=== PATIENT | female | born 1930 | race Caucasian/White ===

== ENCOUNTER 2017-11-07 11:52 | Inpatient (IN) ==
[2017-11-07] MEDS ORDERED: ONDANSETRON 4 MG/2 ML VIAL IV STA (15:23)
[2017-11-07] MEDS ORDERED: SODIUM CHLORIDE 0.9% 1,000 ML IV STA (15:23)
[2017-11-07 16:02] LABS: Basophils % 0.1 % (0.0-0.8); Hematocrit 39.3 VOL% (35.7-47.0); Hemoglobin 13.1 GM/DL (12.0-16.0); Immature Granulocytes % 0.3 %; Immature Granulocytes Absolute 0.04 #; Lymphocytes # 1.2 10*3/uL (1.4-4.0); Lymphocytes % 8.5 % (21.3-54.2); Mean Corpuscular HGB Conc 33.3 GM/DL (32-36); Mean Corpuscular Hemoglobin 29 PG (27-34); Mean Corpuscular Volume 87.7 FL (87-102); Mean Platelet Volume 9.9 FL (9.6-12.0); Monocytes % 6.7 % (1.7-12.7); Neutrophils # 11.9 10*3/uL (1.4-7.4); Neutrophils % 84.4 % (38.7-73.9); Platelet Count 316 T/CUMM (130-400); Red Blood Count 4.48 MC/CUMM (3.8-5.5); Red Cell Distribution Width 13.6 % (9.3-17.3); White Blood Count 14.1 T/CUMM (4-12)
[2017-11-07] MEDS ORDERED: ONDANSETRON 4 MG/2 ML VIAL ONE (16:03)
[2017-11-07 16:11] LABS: Apearance,Urine CLEAR (Clear); Blood, Urine Negative (Negative); Glucose,Urine (UA) Negative (Negative); Ketones,Urine 20 mg/dL (Negative); Mucus,Urine Occasional /LPF (Occasional); Nitrite,Urine Negative (Negative); PT Patient Result 10.7 SECS; Protein,Urine Negative; RBC,Urine 2 /HPF (0-4); Urine Specific Gravity 1.026 (1.001-1.035); Urine Urobilinogen < 2.0 EU/DL (0.2-1.0); WBC,Urine 1 /HPF (0-6)
[2017-11-07 16:12] LABS: Bilirubin,Urine Moderate mg/dL (Negative); Urine Color Yellow (Yellow)
[2017-11-07 16:22] LABS: Bilirubin,Total 0.8 MG/DL (0.2-1.0); Calcium 9.5 MG/DL (8.5-10.1); Lactic Acid 1.7 MMOL/L (0.4-2.0); Osmolality,Calculated 282.8 MOS/KG (273-304); Potassium 4.4 MMOL/L (3.5-5.1); Total Protein 8.2 G/DL (6.4-8.3)
[2017-11-07 16:34] LABS: Troponin I Only < 0.015 NG/ML (0.00-0.045)
[2017-11-07] MEDS ORDERED: ONDANSETRON 4 MG/2 ML VIAL IV PRN ×2 (19:32)
[2017-11-07] MEDS ORDERED: ACETAMINOPHEN 325 MG TABLET PO PRN (19:32)
[2017-11-07] MEDS ORDERED: PROMETHAZINE 25 MG/1 ML VIAL IM PRN (19:32)
[2017-11-07] MEDS ORDERED: MORPHINE 4 MG/1 ML VIAL IV PRN (19:32)
[2017-11-07] MEDS ORDERED: cefOXitin 2,000 MG in SYRINGE 1 EACH IV ONE (20:00)
[2017-11-07] MEDS ORDERED: cefTRIAXone 1,000 MG in SYRINGE 1 EACH IV SCH (20:00)
[2017-11-07] MEDS: SODIUM CHLORIDE 0.9% 1,000 ML IV SCH (20:30)
[2017-11-07] MEDS: PANTOPRAZOLE 40 MG TABLET PO SCH (20:31)
[2017-11-07] MEDS: SIMVASTATIN 20 MG TABLET PO SCH (20:31)
[2017-11-08] MEDS ORDERED: cefOXitin 2,000 MG in SYRINGE 1 EACH IV ONE (06:00)
[2017-11-08 07:12] LABS: Basophils % 0.3 % (0.0-0.8); Eosinophils # 0.1 10*3/uL (0.0-0.87); Eosinophils % 0.5 % (0.00-10.9); Hematocrit 34.9 VOL% (35.7-47.0); Hemoglobin 11.5 GM/DL (12.0-16.0); Immature Granulocytes % 0.2 %; Immature Granulocytes Absolute 0.02 #; Lymphocytes # 1.4 10*3/uL (1.4-4.0); Lymphocytes % 13.7 % (21.3-54.2); Mean Corpuscular Hemoglobin 29 PG (27-34); Mean Corpuscular Volume 88.4 FL (87-102); Monocytes # 1.4 10*3/uL (0.11-0.8); Monocytes % 13.5 % (1.7-12.7); Neutrophils # 7.3 10*3/uL (1.4-7.4); Neutrophils % 71.8 % (38.7-73.9); Platelet Count 278 T/CUMM (130-400); Red Blood Count 3.95 MC/CUMM (3.8-5.5); Red Cell Distribution Width 13.9 % (9.3-17.3); White Blood Count 10.2 T/CUMM (4-12)
[2017-11-08 07:32] LABS: Albumin 3.2 G/DL (3.4-5.0); Bilirubin,Total 0.4 MG/DL (0.2-1.0); Calcium 8.4 MG/DL (8.5-10.1); Osmolality,Calculated 285.4 MOS/KG (273-304); Total Protein 6.5 G/DL (6.4-8.3)
[2017-11-08] MEDS ORDERED: DIAZEPAM 5 MG TABLET PO ONE (08:05)
[2017-11-08] MEDS ORDERED: FAMOTIDINE 20 MG TABLET PO ONE (08:05)
[2017-11-08] MEDS: amLODIPine 5 MG TABLET PO SCH (08:54)
[2017-11-08] MEDS ORDERED: ENOXAPARIN 40 MG/0.4 ML SYRINGE SUBCUT SCH (09:00)
[2017-11-08] MEDS: MONTELUKAST 10 MG TABLET PO SCH (09:00)
[2017-11-08] MEDS ORDERED: LIDOCAINE 1%/EPI INJ 20 ML VIAL ONE (09:37)
[2017-11-08] MEDS ORDERED: ONDANSETRON 4 MG/2 ML VIAL IV PRN ×2 (13:08→14:39)
[2017-11-08] MEDS ORDERED: ONDANSETRON 4 MG/2 ML VIAL ONE ×2 (13:13→15:41)
[2017-11-08] MEDS ORDERED: HYDROmorphone 2 MG/1 ML VIAL ONE (13:13)
[2017-11-08] MEDS: HYDROmorphone 2 MG/1 ML VIAL IV PRN ×3 (13:18→13:34)
[2017-11-08] MEDS ORDERED: LACTATED RINGERS 1,000 ML IV SCH (13:30)
[2017-11-08] MEDS ORDERED: MORPHINE 4 MG/1 ML VIAL IV PRN (14:39)
[2017-11-08] MEDS ORDERED: PROMETHAZINE 25 MG/1 ML VIAL IM PRN (14:39)
[2017-11-08] MEDS ORDERED: PROPOFOL 200 MG/20 ML VIAL IV ONE (15:39)
[2017-11-08] MEDS ORDERED: DESFLURANE 1 UNIT/15 MINUTE INH ONE (15:39)
[2017-11-08] MEDS ORDERED: KETOROLAC 30 MG/1 ML VIAL ONE (15:41)
[2017-11-08] MEDS ORDERED: ACETAMINOPHEN 1,000 MG/100 ML VIAL IV ONE (15:41)
[2017-11-08] MEDS ORDERED: ROCURONIUM 100 MG/10 ML VIAL IV ONE (15:41)
[2017-11-08] MEDS ORDERED: LACTATED RINGERS 1,000 ML IV ONE (15:41)
[2017-11-08] MEDS ORDERED: PHENYLEPHRINE 1 MG/10 ML SYRINGE IV ONE (15:41)
[2017-11-08] MEDS ORDERED: fentaNYL 100 MCG/2 ML VIAL ONE ×2 (15:42→15:51)
[2017-11-08] MEDS: KETOROLAC 15 MG/1 ML VIAL IV SCH ×2 (15:45→20:42)
[2017-11-08] MEDS: LACTATED RINGERS 1,000 ML IV SCH ×2 (17:51→22:25)
[2017-11-08] MEDS: SIMVASTATIN 20 MG TABLET PO SCH (21:10)
[2017-11-09] MEDS: LACTATED RINGERS 1,000 ML IV SCH ×2 (02:20→06:59)
[2017-11-09 04:46] LABS: Basophils % 0.2 % (0.0-0.8); Hematocrit 31.2 VOL% (35.7-47.0); Hemoglobin 10.5 GM/DL (12.0-16.0); Immature Granulocytes % 0.5 %; Immature Granulocytes Absolute 0.05 #; Lymphocytes # 0.8 10*3/uL (1.4-4.0); Lymphocytes % 8.9 % (21.3-54.2); Mean Corpuscular HGB Conc 33.7 GM/DL (32-36); Mean Corpuscular Hemoglobin 29 PG (27-34); Mean Corpuscular Volume 87.2 FL (87-102); Mean Platelet Volume 10.8 FL (9.6-12.0); Monocytes # 0.6 10*3/uL (0.11-0.8); Monocytes % 6.3 % (1.7-12.7); Neutrophils # 7.9 10*3/uL (1.4-7.4); Neutrophils % 84.1 % (38.7-73.9); Platelet Count 202 T/CUMM (130-400); Red Blood Count 3.58 MC/CUMM (3.8-5.5); Red Cell Distribution Width 14.2 % (9.3-17.3); White Blood Count 9.4 T/CUMM (4-12)
[2017-11-09 05:30] LABS: Band Neutrophils 13 % (0-10); Lymphocytes 9 % (20-55); Metamyelocytes 3 %; Microcytosis 1+; Segmented Neutrophils 70 % (50-85); Total Cells Counted 100
[2017-11-09] MEDS: KETOROLAC 15 MG/1 ML VIAL IV SCH ×4 (06:30→23:21)
[2017-11-09 07:37] LABS: Albumin 2.4 G/DL (3.4-5.0); Bilirubin,Total 0.4 MG/DL (0.2-1.0); Calcium 7.9 MG/DL (8.5-10.1); Osmolality,Calculated 291.8 MOS/KG (273-304); Potassium 4.5 MMOL/L (3.5-5.1); Total Protein 4.8 G/DL (6.4-8.3)
[2017-11-09] MEDS: DEXT 5% NACL 0.45% KCL 40 MEQ 40 MEQ/1,000 ML BAG IV SCH ×2 (07:54→21:19)
[2017-11-09] MEDS: amLODIPine 5 MG TABLET PO SCH (09:13)
[2017-11-09] MEDS: ENOXAPARIN 40 MG/0.4 ML SYRINGE SUBCUT SCH (09:13)
[2017-11-09] MEDS: PANTOPRAZOLE 40 MG VIAL IV SCH (09:13)
[2017-11-09] MEDS: MONTELUKAST 10 MG TABLET PO SCH (09:13)
[2017-11-09] MEDS: SODIUM CHLORIDE 0.9% 1,000 ML IV SCH (10:01)
[2017-11-09] MEDS: PANTOPRAZOLE 40 MG TABLET PO SCH (10:01)
[2017-11-09] MEDS: SIMVASTATIN 20 MG TABLET PO SCH (21:19)
[2017-11-10 05:16] LABS: Basophils % 0.2 % (0.0-0.8); Eosinophils # 0.4 10*3/uL (0.0-0.87); Eosinophils % 2.2 % (0.00-10.9); Hematocrit 31.3 VOL% (35.7-47.0); Hemoglobin 10.3 GM/DL (12.0-16.0); Immature Granulocytes % 0.7 %; Immature Granulocytes Absolute 0.11 #; Lymphocytes # 1.3 10*3/uL (1.4-4.0); Lymphocytes % 8.3 % (21.3-54.2); Mean Corpuscular HGB Conc 32.9 GM/DL (32-36); Mean Corpuscular Hemoglobin 29 PG (27-34); Mean Corpuscular Volume 87.2 FL (87-102); Mean Platelet Volume 10.5 FL (9.6-12.0); Monocytes # 0.8 10*3/uL (0.11-0.8); Monocytes % 5.3 % (1.7-12.7); Neutrophils % 83.3 % (38.7-73.9); Platelet Count 202 T/CUMM (130-400); Red Blood Count 3.59 MC/CUMM (3.8-5.5); Red Cell Distribution Width 14.5 % (9.3-17.3); White Blood Count 15.7 T/CUMM (4-12)
[2017-11-10] MEDS: KETOROLAC 15 MG/1 ML VIAL IV SCH ×4 (05:40→23:35)
[2017-11-10 05:47] LABS: Band Neutrophils 5 % (0-10); Hypochromasia 1+; Lymphocytes 6 % (20-55); Ovalocytes Slight; Platelet Estimate Adequate; Segmented Neutrophils 84 % (50-85); Total Cells Counted 100
[2017-11-10 05:48] LABS: Microcytosis 1+
[2017-11-10 05:55] LABS: Calcium 7.8 MG/DL (8.5-10.1); Osmolality,Calculated 287.3 MOS/KG (273-304); Potassium 4.8 MMOL/L (3.5-5.1)
[2017-11-10] MEDS: amLODIPine 5 MG TABLET PO SCH (09:09)
[2017-11-10] MEDS: PANTOPRAZOLE 40 MG VIAL IV SCH (09:09)
[2017-11-10] MEDS: MONTELUKAST 10 MG TABLET PO SCH (09:09)
[2017-11-10] MEDS: ENOXAPARIN 40 MG/0.4 ML SYRINGE SUBCUT SCH (09:16)
[2017-11-10] MEDS: DEXT 5% NACL 0.45% KCL 40 MEQ 40 MEQ/1,000 ML BAG IV SCH ×2 (11:05→23:44)
[2017-11-10] MEDS: SIMVASTATIN 20 MG TABLET PO SCH (21:42)
[2017-11-11] MEDS: KETOROLAC 15 MG/1 ML VIAL IV SCH (06:37)
[2017-11-11 07:13] LABS: Basophils # 0.1 10*3/uL (0.0-0.2); Basophils % 0.3 % (0.0-0.8); Eosinophils # 0.9 10*3/uL (0.0-0.87); Eosinophils % 5.9 % (0.00-10.9); Hematocrit 34.2 VOL% (35.7-47.0); Immature Granulocytes Absolute 0.15 #; Lymphocytes # 1.3 10*3/uL (1.4-4.0); Lymphocytes % 8.1 % (21.3-54.2); Mean Corpuscular HGB Conc 32.2 GM/DL (32-36); Mean Corpuscular Hemoglobin 29 PG (27-34); Mean Corpuscular Volume 90.5 FL (87-102); Mean Platelet Volume 10.6 FL (9.6-12.0); Monocytes # 0.8 10*3/uL (0.11-0.8); Monocytes % 4.8 % (1.7-12.7); Neutrophils # 12.5 10*3/uL (1.4-7.4); Neutrophils % 79.9 % (38.7-73.9); Platelet Count 224 T/CUMM (130-400); Red Blood Count 3.78 MC/CUMM (3.8-5.5); Red Cell Distribution Width 14.3 % (9.3-17.3); White Blood Count 15.7 T/CUMM (4-12)
[2017-11-11 07:23] VITALS: BP 145/51
[2017-11-11 07:46] LABS: Bilirubin,Total 0.7 MG/DL (0.2-1.0); Osmolality,Calculated 282.3 MOS/KG (273-304); Potassium 5.2 MMOL/L (3.5-5.1); Total Protein 5.3 G/DL (6.4-8.3)
[2017-11-11] MEDS: amLODIPine 5 MG TABLET PO SCH (09:17)
[2017-11-11] MEDS: ENOXAPARIN 40 MG/0.4 ML SYRINGE SUBCUT SCH (09:17)
[2017-11-11] MEDS: MONTELUKAST 10 MG TABLET PO SCH (09:17)
[2017-11-11] MEDS: PANTOPRAZOLE 40 MG VIAL IV SCH (09:17)
== END 2017-11-11 11:01 | disposition home health service (06) | DRG 414 ==
LOC: N.ED 11:52 → N.EDINP 16:35 → N.3E 19:29
PROVIDERS: ADMIT Surgery; ATTEND Surgery
PROC: LAPCHOL (2017-11-08 09:33)

== ENCOUNTER 2018-02-03 16:03 | Inpatient (IN) ==
[2018-02-03] MEDS ORDERED: ONDANSETRON 4 MG/2 ML VIAL IV STA (17:03)
[2018-02-03] MEDS ORDERED: SODIUM CHLORIDE 0.9% 1,000 ML IV STA (17:03)
[2018-02-03 17:20] LABS: Apearance,Urine Slightly Hazy (Clear); Bilirubin,Urine Moderate mg/dL (Negative); Blood, Urine Negative (Negative); Glucose,Urine (UA) Negative (Negative); Hyaline Casts,Urine 12 /LPF (0-3); Ketones,Urine 5 mg/dL (Negative); Mucus,Urine Many /LPF (Occasional); Nitrite,Urine Negative (Negative); Protein,Urine 30 MG/DL; RBC,Urine 3 /HPF (0-4); Squamous Epithelial Cell,Urine Occasional /HPF (0-10); Urine Color Dark yellow (Yellow); Urine Specific Gravity 1.029 (1.001-1.035); Urine Urobilinogen < 2.0 EU/DL (0.2-1.0); WBC,Urine 15 /HPF (0-6)
[2018-02-03] MEDS ORDERED: ONDANSETRON 4 MG/2 ML VIAL ONE (17:28)
[2018-02-03 17:49] LABS: Basophils % 0.2 % (0.0-0.8); Hematocrit 37.1 VOL% (35.7-47.0); Hemoglobin 12.1 GM/DL (12.0-16.0); Immature Granulocytes % 0.4 %; Immature Granulocytes Absolute 0.04 #; Lymphocytes # 1.1 10*3/uL (1.4-4.0); Lymphocytes % 11.2 % (21.3-54.2); Mean Corpuscular HGB Conc 32.6 GM/DL (32-36); Mean Corpuscular Hemoglobin 30 PG (27-34); Mean Corpuscular Volume 90.7 FL (87-102); Mean Platelet Volume 10.7 FL (9.6-12.0); Monocytes # 0.6 10*3/uL (0.11-0.8); Neutrophils # 7.9 10*3/uL (1.4-7.4); Neutrophils % 82.2 % (38.7-73.9); Platelet Count 222 T/CUMM (130-400); Red Blood Count 4.09 MC/CUMM (3.8-5.5); Red Cell Distribution Width 15.5 % (9.3-17.3); White Blood Count 9.6 T/CUMM (4-12)
[2018-02-03 18:15] LABS: Albumin 3.6 G/DL (3.4-5.0); Bilirubin,Total 0.6 MG/DL (0.2-1.0); Calcium 9.4 MG/DL (8.5-10.1); Osmolality,Calculated 286.3 MOS/KG (273-304); Potassium 4.4 MMOL/L (3.5-5.1); Total Protein 7.2 G/DL (6.4-8.3)
[2018-02-04] MEDS ORDERED: ALBUTEROL/IPRATROPIUM 3 ML NEB RESP TX SCH (01:00)
[2018-02-04] MEDS: ALBUTEROL/IPRATROPIUM 3 ML NEB RESP TX SCH ×2 (13:28→20:00)
[2018-02-04] MEDS ORDERED: ONDANSETRON 4 MG/2 ML VIAL IV PRN (15:00)
[2018-02-04] MEDS ORDERED: hydrALAZINE 20 MG/1 ML VIAL IV PRN (15:05)
[2018-02-04] MEDS ORDERED: HYDROmorphone 2 MG/1 ML VIAL IV PRN (15:07)
[2018-02-04] MEDS: MONTELUKAST 10 MG TABLET PO SCH (18:42)
[2018-02-04] MEDS ORDERED: SIMVASTATIN 20 MG TABLET PO SCH (21:00)
[2018-02-05] MEDS: ALBUTEROL/IPRATROPIUM 3 ML NEB RESP TX SCH ×3 (00:58→13:20)
[2018-02-05] MEDS: MONTELUKAST 10 MG TABLET PO SCH (09:05)
[2018-02-05 11:24] VITALS: BP 120/77
== END 2018-02-05 14:30 | disposition home or self-care (01) | DRG 390 ==
LOC: N.ED 16:03 → N.EDINP 19:55 → N.3E 22:20
PROVIDERS: ADMIT Surgery; ATTEND Surgery